=== PATIENT | male | born 1975 | race Caucasian/White ===

== ENCOUNTER 2018-02-25 05:50 | Emergency (ER) | payer OTHER, SELFPAY ==
[2018-02-25 05:55] VITALS: BP 133/84; PULSE 68; RESP 16; TEMP 36.9; O2SAT 98; BMI 37.5
--- NOTE | 2018-02-25 06:20 | RAD_ITS ---
STUDY: X-RAY - RIGHT TIBIA AND FIBULA REASON FOR EXAM: Male, 42 years old. SLIPPED OFF STEPS C/O PAIN DISTAL RT FIBULA TECHNIQUE: 2 view(s) of the tibia and fibula were obtained. COMPARISON: None. FINDINGS: Normal visualized tibia. There is mildly displaced fracture in distal part of the fibular diaphysis. The soft tissue structures are unremarkable. RAD/Tibia & Fibula 2 Views IMPRESSION: There is mildly displaced fracture in distal part of the fibular diaphysis. Electronically Signed: Magdiel Mann MD at 7:27 EDT Tel , Service support ,
--- NOTE | 2018-02-25 06:20 | RAD_ITS ---
STUDY: X-RAY - RIGHT ANKLE REASON FOR EXAM: Male, 42 years old. Slipped off steps, complaining distal right fibula pain TECHNIQUE: 3 view(s) of the ankle. COMPARISON: None. FINDINGS: Acute oblique fracture of the distal right fibula with 1.5 mm cortical step-off. Mild medial angulation of the distal fibula. Intact tibia. There is a tiny curvilinear density along the medial malleolus apex. There is adjacent soft tissue swelling. Otherwise normal medial and lateral malleoli. Normal tibiotalar articulation and ankle mortise. Normal visualized talus and calcaneus. Tiny plantar calcaneal spur. The visualized subtalar, talonavicular, calcaneocuboid and tarsal articulations are normal. The soft tissue structures are unremarkable. RAD/Ankle min 3 Views IMPRESSION: Acute distal fibular fracture with medial angulation, mild cortical step-off. Suspected avulsion injury along the medial malleolus apex. Electronically Signed: Rain Freitas MD at 7:44 EDT , Service support ,
--- NOTE | 2018-02-25 06:22 | ED.VISSUMM ---
- ER Visit Summary Date of Service: 02/25/18 Chief Complaint: Right lower extremity injury History of Present Illness: The patient is a 42 M injury of right lower extremity after stepping out of his truck at 5 AM this morning. States unlevel ground, states fell down, no head injuries. States felt 2 pops in the right lower extremity. Tried getting up, however felt movement of bone. No paresthesias. States has had ankle fracture in the past with casting unsure which side. Denies history of gastric ulcers or kidney injuries. Physical Examination: General: Alert and oriented ?3, no acute distress HEENT: Normocephalic, atraumatic. Moist mucosa membranes Neck: supple, nontender. Cardiovascular: Regular rate and rhythm, no murmurs Respiratory: Normal breath sounds, symmetric, no distress Abdomen: Soft, nontender, nondistended Extremities: Right lower extremity: No knee or proximal fibular head tenderness. There is tenderness at the distal third of the fibula, mild crepitus. Tenderness at the ATFL on the right. No medial mild tenderness. Skin intact. Neurovascularly intact. Neuro: no focal neurological deficits. Test Results: Right ankle and tib-fib x-ray: Distal fibular fracture. Emergency Department Course and Treatment: Patient treated with oxycodone in the ED. X-rays obtained no distal fibular fracture. There is no ankle involvement, normal mortise. He had no medial malleolus tenderness on examination. I discussed with covering orthopedist, Dr. Barr, agrees with long walking boot, crutches, continue to elevate. Patient will be seen in the office next week. He will be given work restrictions. Treatment Plan: [] Disposition: Discharge Impression: Right distal fibular fracture This note was generated with [employer] dictation software. It may contain incorrect words, spelling, and punctuation that were not noted in review of the chart prior to signing ED Disposition - Plan for ED Patient: Disposition: Home or Assisted Living Chief Complaint: Lower Extremity Injury Diagnosis: Closed fracture of right distal fibula Instructions: ED Fx Lower Ext Prescriptions: Oxycodone HCl/Acetaminophen [Percocet 5/325] 1 tablet PO Q6H PRN PRN 5 Days #20 tablet PRN Reason: Pain Ibuprofen 600 mg PO 4X/DAY #30 tablet Referrals: Shaji Bro DO [Primary Care Provider] - Ryan Barr MD [STAFF PHYSICIAN] - 3-5 Days Additional Instructions: Right distal fibular fracture
[2018-02-25] MEDS: oxyCODONE 5 MG Tablet PO ×2 (06:31→08:02)
[2018-02-25] MEDS: Ibuprofen 600 MG Tablet PO (08:02)
== END 2018-02-25 09:00 | disposition home or self-care (01) ==
PROVIDERS: Emergency Provider Emergency Medicine; Family Provider Family Medicine; PCP Family Medicine
DX: S82.831A Other fracture of upper and lower end of right fibula, initial encounter for closed fracture (principal); W17.89XA Other fall from one level to another, initial encounter; Y93.9 Activity, unspecified; Y92.9 Unspecified place or not applicable; Z72.0 Tobacco use
CPT/HCPCS: 73590; 73610; 99285

== ENCOUNTER → 2018-11-30 11:12 | Outpatient (CLI) | payer OTHER, SELFPAY ==
--- NOTE | 2018-11-30 11:24 | RAD_ITS ---
STUDY: X-RAY CHEST REASON FOR EXAM: Male, 43 years old. Cough TECHNIQUE: PA and lateral views of the chest. COMPARISON: None. FINDINGS: The lungs are clear and expanded. There is no demonstrated pleural abnormality. Normal size heart. Normal mediastinum and sofia. Normal visualized pulmonary arteries. Normal visualized aortic arch and descending thoracic aorta. Normal visualized thoracic spine. Normal visualized ribs, clavicles, and shoulders. There is no demonstrated abnormality of the visualized soft tissue structures of the upper abdomen. RAD/Chest PA and Lateral IMPRESSION: No acute cardiopulmonary process. Electronically Signed: Ely Rust MD at 23:52 EST Tel , Service support ,
== END ==
LOC: MTRAD 11:24
PROVIDERS: Family Provider Family Medicine; PCP Family Medicine; Referring Provider Family Medicine; Visit Provider Family Medicine
DX: R05 Cough (principal)
CPT/HCPCS: 71046

== ENCOUNTER → 2020-04-23 | Outpatient (CLI) | payer SELFPAY ==
--- NOTE | 2020-04-23 | LES_PTH ---
PATIENT: CULLEN HSU LOC: [facility] U#:[id number] AGE/SX: 44/M ROOM: RE04/23/[address]: Dr. Shaji Bro DO : 1975 BED: DIS: 04/23/2020 SPEC #: [id number] RECD: 04/23/20 17:06 STATUS: [facility] RE #: [id number] DEMETRIS: 04/23/20 00:[address]: Shaji Bro DEPT: SURGICAL PATHOLOGY RECD BY: Jose Dia Tissues: Skin of abdomen, NOS Procedures: No Tissue Found Comments: Informed Dr. Bro's office. Patient deciding on rebiopsy. 04/26/20 rg HEADER OPERATION: Punch biopsy PRE-OP DIAGNOSIS: Abnormal nevus 6 cm; rule out melanoma TISSUE SUBMITTED: 4 mm punch biopsy GROSS DESCRIPTION Received is one container labeled with the patient's name and not further designated. The specimen consists of a discoid fragment of light mariscal tissue measuring 3 mm in diameter and 0.1 mm in thickness. The specimen is totally submitted in one cassette. / AM:vish 04/24/20 TC: CPT:
== END | disposition home or self-care (01) ==
PROVIDERS: PCP Family Medicine; Visit Provider Family Medicine
DX: D22.9 Melanocytic nevi, unspecified (principal)
CPT/HCPCS: 88305

== ENCOUNTER → 2020-06-04 10:36 | Outpatient (CLI) | payer BC, SELFPAY ==
--- NOTE | 2020-06-04 | IMM_PTH ---
PATIENT: CULLEN HSU LOC: [facility] U#:[id number] AGE/SX: 50/M ROOM: RE06/04/[address]: Dr. Shaji Bro DO : 1975 BED: DIS: SPEC #: [id number] RECD: 06/05/20 13:41 STATUS: [facility] #: [id number] DEMETRIS: 06/04/20 00:[address]: Shaji Bro DEPT: IMMUNOHISTOCHEMISTRY RECD BY: Alberta Gastelum Tissues: Skin of back, NOS Procedures: Pelham-1 (initial) S-100 (add) PHYSICIAN & INSTITUTION [place] [address] SPECIMEN INFORMATION: Tissue Source: Back lesion Clinical Info: Rule out melanoma Specimen Number: [id number] CPT code: 09480, 54652 METHODOLOGY: Deparaffinized sections of prefer/formalin-fixed tissue or PAP/DQ stained slides are incubated with monoclonal/polyclonal antibodies/oligonucleotide probes. Localization is made via biotin free immunoperoxidase method. Appropriate controls are performed and reacted as expected. Results on target cell population are indicated in the following table: RESULTS: ANTIBODY / CLONE RESULT MART-1 (A-103) positive S-100 (4C4.9) positive These tests were developed and their performance characteristics determined by [facility]. They may not have been cleared or approved by the [place]. Food and Drug Administration. The FDA has determined that such clearance or approval is not necessary. The above immunohistochemical/dualISH markers are ordered and reviewed by the Pathologist. INTERPRETATION: Back lesion, excisional biopsy: Compound nevus with predominantly intradermal component. Changes consistent with lentigo. SJ:vish 06/06/20 Case has been reviewed in consultation with Dr. Magdaleno who concurs with the above diagnosis. IDC:AM
--- NOTE | 2020-06-04 10:05 | TISS_PTH ---
PATIENT: CULLEN HSU LOC: [facility] U#:[id number] AGE/SX: 50/M ROOM: RE06/04/[address]: Dr. Shaji Bro, : 1975 BED: DIS: SPEC #: [id number] RECD: 06/04/20 12:14 STATUS: [facility] #: [id number] DEMETRIS: 06/04/20 10:[address]: Shaji Bro DEPT: SURGICAL PATHOLOGY RECD BY: Prakash Fan Tissues: Back, NOS Procedures: Surgery Specimen Level IV HEADER OPERATION: Excisional biopsy abnormal nevus back PRE-OP DIAGNOSIS: Rule out melanoma; prior punch biopsy of same lesion lost TISSUE SUBMITTED: Back MICROSCOPIC DIAGNOSIS Back lesion, excisional biopsy: Compound nevus with predominantly intradermal component extending up to the peripheral margin of the specimen. Changes consistent with lentigo. Negative for malignancy. Dermal fibrosis, consistent with previous biopsy site. See comment. TONI:vish 06/05/20 COMMENT Immunohistochemistry ([id number]) supports the above diagnosis. Case has been reviewed in consultation with Dr. Magdaleno who concurs with the above diagnosis. IDC:AM MICROSCOPIC DESCRIPTION Slides are reviewed. GROSS DESCRIPTION Received is one container labeled with the patient's name and not further designated. The specimen consists of a piece of mariscal-white skin measuring 1 x 0.5 x 0.2 cm. The specimen is inked and submitted entirely in one cassette. It will be sectioned at the time of embedding. / SJ:rg 06/04/20 TC:1 CPT: 45096
== END ==
PROVIDERS: PCP Family Medicine; Visit Provider Family Medicine
DX: D22.5 Melanocytic nevi of trunk (principal)
CPT/HCPCS: 88305; 88341; 88342

== ENCOUNTER → 2020-10-02 13:30 | Outpatient (CLI) | payer BC, SELFPAY | PROVIDERS: PCP Family Medicine; Visit Provider Family Medicine | DX: R53.83 Other fatigue (principal); R05 Cough; R11.2 Nausea with vomiting, unspecified; R19.7 Diarrhea, unspecified | CPT/HCPCS: 87426 ==